=== PATIENT | female | born 1950 | race Caucasian/White ===

== ENCOUNTER → 2023-08-16 14:39 | Outpatient (REF) | payer MEDICARE, OTHER, SELFPAY ==
[2023-08-16 15:17] LABS: % Immature Granulocytes 0.2 % (0-0.5); % Lymphocytes 35.9 % (20.5-51.1); % Monocytes 11.3 % (1.7-9.3); % Neutrophils 45.6 % (42.2-75.2); Absolute Basophils 0.1 10^3/uL (0-0.2); Absolute Eosinophils 0.3 10^3/uL (0-0.7); Absolute Lymphocytes 1.9 10^3/uL (1.2-3.4); Absolute Monocytes 0.6 10^3/uL (0.1-0.6); Absolute Neutrophils 2.4 10^3/uL (1.4-6.5); Hematocrit 37.6 % (37.0-47.0); Hemoglobin 12.6 g/dL (12.0-16.0); Mean Corp Hgb Conc. 33.5 g/dL (33.0-37.0); Mean Corpuscular Hgb 28.4 pg (27.0-31.0); Mean Corpuscular Volume 84.7 fL (81.0-99.0); Mean Platelet Volume 10.3 fL (7.4-10.4); Nucleated Red Blood Cells % 0 %; Platelet Count 275 10^3/uL (130-400); Red Blood Cell Count 4.44 10^6/uL (4.20-5.40); Red Cell Dist. Width 13.3 % (11.5-14.5); White Blood Cell Count 5.2 10^3/uL (4.8-10.8)
[2023-08-16 15:29] LABS: ALT (SGPT) 26 U/L (0-35); AST (SGOT) 31 U/L (14-36); Albumin 4.8 g/dl (3.5-5.0); Alkaline Phosphatase 92 U/L (38-126); Blood Urea Nitrogen 25 mg/dl (7-17); Calcium 10.2 mg/dl (8.4-10.2); Carbon Dioxide 29 mmol/L (22-30); Chloride 99 mmol/L (98-107); Glucose 94 mg/dl (70-99); Potassium 3.8 mmol/L (3.5-5.1); Sodium 138 mmol/L (135-145); Total Bilirubin 0.6 mg/dl (0.2-1.3); Total Protein 7.5 g/dl (6.3-8.2); eGFR > 60.00
== END ==
LOC: REG 14:39
PROVIDERS: ATTENDING PHYSICIAN Nurse Practitioner Family
DX: R10.9 Unspecified abdominal pain (principal); R10.32 Left lower quadrant pain
CPT/HCPCS: 36415; 80053; 85025

== ENCOUNTER → 2023-08-17 14:27 | Outpatient (REF) | payer MEDICARE, OTHER, SELFPAY ==
--- NOTE | 2023-08-27 10:46 | OID.L.PAT ---
Pulmonary Nodule Pat Letter
- -
08/27/23
SEBASTIAN MORE
[address] [place] [address]
[place], [place]
Dear SEBASTIAN,
A pulmonary nodule was seen on an imaging study done by [facility] Radiology. This was reviewed by the [facility] Pulmonary Nodule Advisory Board and the following recommendation was made:
Recommendation: Follow up CT Chest in 6 months
If you have any questions, please do not hesitate to contact your primary care physician. If you are in need of a Physician, you can go to [email or web address] and click on 'Find a Provider'. Type 'Family Medicine' in the search.
Oncology Nurse Navigator
[facility]
[phone]
--- NOTE | 2023-08-27 10:46 | OID.L.REC ---
Pulmonary Nodule Follow Up
- Recommendation
08/27/23
Pulmonary Nodule Review Recommendations
Your patient, SEBASTIAN MORE, had a pulmonary nodule seen on an imaging study done on 08/17/23 in the [facility] Radiology Department.
This was reviewed by the [facility] Pulmonary Nodule Advisory Board and the following recommendation was made:
Recommendation: Follow up CT Chest in 6 months
If you have any questions please do not hesitate to contact us.
Sincerely,
Oncology Nurse Navigator
[facility]
[phone]
== END ==
LOC: HWRAD 14:27
PROVIDERS: ATTENDING PHYSICIAN Nurse Practitioner Family; FAMILY PHYSICIAN Internal Medicine
DX: R10.9 Unspecified abdominal pain (principal); R10.32 Left lower quadrant pain
CPT/HCPCS: 74178; Q9967

== ENCOUNTER → 2023-10-15 12:26 | Outpatient (REF) | payer MEDICARE, OTHER, SELFPAY | LOC: HWRAD 12:26 | PROVIDERS: ATTENDING PHYSICIAN Internal Medicine | DX: M81.0 Age-related osteoporosis without current pathological fracture (principal) | CPT/HCPCS: 77080 ==

== ENCOUNTER → 2024-02-28 07:30 | Outpatient (REF) | payer MEDICARE, OTHER, SELFPAY | LOC: RAD 07:30 | PROVIDERS: ATTENDING PHYSICIAN Family Medicine | DX: R91.1 Solitary pulmonary nodule (principal); M25.552 Pain in left hip; M25.562 Pain in left knee | CPT/HCPCS: 71250; 73502; 73564 ==

== ENCOUNTER 2024-09-03 19:58 | Emergency (ER) | payer MEDICARE, OTHER, SELFPAY ==
[2024-09-03 19:58] VITALS: BMI 27.3
[2024-09-03 20:04] VITALS: BP 203/115
[2024-09-03 20:23] LABS: % Basophils 0.9 % (0-2); % Eosinophils 4.5 % (0-6); % Immature Granulocytes 0.2 % (0-0.5); % Lymphocytes 32.6 % (20.5-51.1); % Monocytes 10.8 % (1.7-9.3); Absolute Basophils 0.1 10^3/uL (0-0.2); Absolute Eosinophils 0.3 10^3/uL (0-0.7); Absolute Lymphocytes 2.1 10^3/uL (1.2-3.4); Absolute Monocytes 0.7 10^3/uL (0.1-0.6); Absolute Neutrophils 3.3 10^3/uL (1.4-6.5); Hematocrit 37.9 % (37.0-47.0); Hemoglobin 12.8 g/dL (12.0-16.0); Mean Corp Hgb Conc. 33.8 g/dL (33.0-37.0); Mean Corpuscular Volume 85.7 fL (81.0-99.0); Mean Platelet Volume 9.6 fL (7.4-10.4); Nucleated Red Blood Cells % 0 %; Platelet Count 284 10^3/uL (130-400); Red Blood Cell Count 4.42 10^6/uL (4.20-5.40); Red Cell Dist. Width 13.9 % (11.5-14.5); White Blood Cell Count 6.4 10^3/uL (4.8-10.8)
[2024-09-03 20:37] LABS: ALT (SGPT) 25 U/L (0-35); AST (SGOT) 32 U/L (14-36); Albumin 4.7 g/dl (3.5-5.0); Alkaline Phosphatase 88 U/L (38-126); Blood Urea Nitrogen 26 mg/dl (7-17); Calcium 10.1 mg/dl (8.4-10.2); Carbon Dioxide 29 mmol/L (22-30); Chloride 105 mmol/L (98-107); Glucose 111 mg/dl (70-99); Magnesium 2.1 mg/dl (1.6-2.3); Potassium 4.3 mmol/L (3.5-5.1); Sodium 141 mmol/L (135-145); Total Bilirubin 0.5 mg/dl (0.2-1.3); Total Protein 7.6 g/dl (6.3-8.2); eGFR > 60.00
[2024-09-03 20:43] VITALS: BP 178/91
--- NOTE | 2024-09-03 20:44 | ED.GENMED ---
History of Present Illness
General
Chief Complaint: Blood Pressure Problem
Source: patient
Time Seen by Provider: 09/03/24 20:27
History of Present Illness
History of Present Illness:
74-year-old female presents to the emergency room complaining of having episode of chest pain at about 5:30 PM. She describes it as a severe tightness or pressure in her chest which lasted a couple minutes. She began checking her blood pressure
because of this chest discomfort. Her blood pressure was elevated and seem to become more elevated to the course of her measurements. This prompted her to come to the emergency room for evaluation. Patient denies any history of hypertension. She
does not take any blood pressure medications. She does see a jewel inspector, Dr. Michele, because she had atherosclerotic changes noted on a chest CT. She does have elevated lipids for which she was prescribed statins but has been intolerant.
Patient denies having any chest discomfort with exertion over the past several weeks. Her blood pressure was normal when she last saw Dr. Michele in July.
Phy Exam
Physical Exam
Physical Exam:
General: Awake, Alert, Oriented X3. No acute distress.
Vitals: unremarkable
Head: Atraumatic
Eyes: Pupils equal, EOMI
Throat: Airway intact, no exudates
Neck: Trachea midline
Lungs: Clear and equal b/l
Heart: Regular rate, no murmurs
Abd: Soft, Nontender, No pulsatile mass
Neuro: Cranial nerves intact, muscle strength equal bilaterally, cerebellar exam normal
Skin: Warm, dry, no rash
Extremities: pulses equal b/l, no edema
Course
Orders/Labs/Results
Orders:
Orders
09/03/24 19:58
Electrocardiogram (*1) Urgent
Reason for Study: Chest Pain
EKG- Treatment ONCE
09/03/24 20:14
Complete Blood Count/With Diff Urgent
Comprehensive Metabolic Panel Urgent
Free T4 Urgent
Magnesium Urgent
TSH Reflex To Free T4 Urgent
Troponin I Urgent
09/03/24 20:38
CT Chest Angio W/wo Iv Contras Urgent
Comment:
Reason For Exam: sudden onset hypertension, chest pain
09/03/24 21:34
Troponin I Urgent
Urinalysis Reflex To Culture Urgent
Date Specimen was Collected: 09/03/24
Time Specimen was Collected: 21:33
Urine Microscopic Reflex Cult Urgent
Abnormal Lab Results
09/03/24 09/03/24
20:14 21:34
Absolute Monos (auto) 0.7 H 10^3/uL
(0.1-0.6)
Monocytes % 10.8 H %
(1.7-9.3)
BUN 26 H mg/dl
(7-17)
Glucose 111 H mg/dl
(70-99)
TSH (Reflex) 5.00 H uIU/ml
(0.47-4.68)
Ur Occult Blood Reflex 1+ A
(Negative)
Urine RBC 3-6 A /HPF
(0-2)
09/03/24 20:14
09/03/24 20:14
Vital Signs
Initial and Last Documented VS:
Initial Vital Signs
Temp Pulse Resp BP Pulse Ox
98.2 F 79 20 203/115 99
09/03/24 20:04 09/03/24 20:04 09/03/24 20:04 09/03/24 20:04 09/03/24 20:04
Last Documented Vital Signs
Temp Pulse Resp BP Pulse Ox
98.2 F 74 19 153/69 100
09/03/24 20:04 09/03/24 22:00 09/03/24 22:00 09/03/24 21:30 09/03/24 22:00
MDM/Problems Addressed
Differential Diagnosis Includes:
Aortic dissection, angina, NSTEMI, musculoskeletal chest pain, labile blood pressure
MDM/Problems Addressed:
Patient presents to the emergency room after having an episode of chest pain and elevated blood pressure. Though her blood pressure was quite high on arrival in triage it has normalized without intervention. Most recent blood pressure is 138/81.
Given chest pain and this suddenly elevated blood pressure a CT of the chest was performed to exclude dissection. The chest CT is read by radiology as unremarkable. Troponin is normal x 2. Patient is known to Dr. Michele. We will give her CBC
chest pain discharge instructions to facilitate outpatient follow-up. I do not believe we need to initiate antihypertensives at this point as her blood pressure has normalized without intervention. We will defer this to cardiology and/or primary
care.
*Radiology
Radiology exam reviewed: radiology read reviewed
*EKG
Interpreted by ED Provider?: Yes
Interpretation: normal
Comparison EKG: no changes (compared to ekg from cardiology office 07/16/24)
Heart Rate: 82
Rate: normal
Rhythm: sinus
[place]: normal axis
Interval: normal interval
QRS Pattern: normal QRS
Ischemia: no ischemia
*[facility] [place] Interpretation
Rate: normal
Interpretation: normal
Heart Rate: 82
Rhythm: sinus
*Critical Care Note
Total Time (30-74mins, 75-104mins- exclusive of procedures): Not Applicable
Data Reviewed
Review of Other/Old Records Reveals: Records (Dr. Michele office notes) and Testing (EKG from Dr. Michele's office)
Patient Management
Social determinants of health affecting care: Strong social support
ED Attending Note
-
Portions of this chart may have been created with voice recognition software.� Occasional wrong word or��sound alike� substitutions may have occurred due to the inherent limitations of voice recognition software.
Discharge Plan
Departure
Patient Disposition: Home (Routine Discharge)
Date of Disposition: 09/03/24
Time of Disposition: 22:27
Patient with high blood pressure during this ER visit?: Yes
Condition: Good
Discharge Problem:
Chest pain, Elevated blood pressure reading
Instructions: Chest Pain CBC Follow Up, BLOOD PRESSURE
Referrals:
Latasha Marrero MD [Family Provider] -
Interventions
Interventions:
*General Assessment Last Done: 09/03/24 20:04
ED- Cardiac Assessment Last Done: 09/03/24 21:11
ED- Neurological Assessment Last Done: 09/03/24 21:11
ED- Pulmonary Assessment Last Done: 09/03/24 21:11
Discharge Date and Time
Print Language: THAI
[2024-09-03 20:50] LABS: Troponin I < 0.012 ng/ml
[2024-09-03 21:05] VITALS: BP 145/73
[2024-09-03 21:27] VITALS: BP 155/74
[2024-09-03 21:30] VITALS: BP 153/69
[2024-09-03 21:37] LABS: Free T4 1.21 ng/dl (0.78-2.19)
[2024-09-03 21:46] LABS: Urine Albumin Negative (Neg - Trace); Urine Bilirubin Negative (Negative); Urine Character Clear (Clear); Urine Color Yellow; Urine Glucose Negative (Negative); Urine Ketone Negative (Negative); Urine Leukocyte Negative (Negative); Urine Nitrite Negative (Negative); Urine Occult Blood 1+ (Negative); Urine Urobilinogen Negative (Neg - 1+)
[2024-09-03 22:00] VITALS: BP 138/81
[2024-09-03 22:09] LABS: Urine White Cell 0-2 /HPF (0-5)
[2024-09-03 22:19] LABS: Troponin I 0.014 ng/ml
== END 2024-09-03 22:30 | disposition home or self-care (01) ==
LOC: EMR 19:58
PROVIDERS: Student in an Organized Health Care Education/Training Program; EMERGENCY PHYSICIAN Emergency Medicine; FAMILY PHYSICIAN Family Medicine
DX: R07.89 Other chest pain (principal); R03.0 Elevated blood-pressure reading, without diagnosis of hypertension
CPT/HCPCS: 99284; 71275; 80053; 81003; 81015; 83735; 84439; 84443; 84484; 85025; 93005; Q9967

== ENCOUNTER → 2025-03-20 08:58 | Outpatient (REF) | payer MEDICARE, OTHER, SELFPAY | LOC: RAD 08:58 | PROVIDERS: ATTENDING PHYSICIAN Family Medicine | DX: R10.30 Lower abdominal pain, unspecified (principal) | CPT/HCPCS: 74177; Q9967 ==

== ENCOUNTER 2025-06-07 08:55 | Emergency (ER) | payer MEDICARE, OTHER, SELFPAY ==
[2025-06-07 09:00] VITALS: BP 162/91
[2025-06-07] MEDS: TORADOL 15 MG IM (10:15)
[2025-06-07] MEDS: FLEXERIL 5 MG PO ×2 (11:23→12:35)
--- NOTE | 2025-06-07 11:31 | ED.GENMED ---
History of Present Illness
General
Chief Complaint: Extremity Pain (non-traumatic)
Time Seen by Provider: 06/07/25 09:41
History of Present Illness
History of Present Illness:
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 Reports
that she has been caring for her dog after surgery and having to pick them up frequently which has been exacerbating this back pain. Pain began yesterday and has worsened throughout the last 24 hours. She is able to ambulate without difficulty but
does report pain with ambulation. She was concern for a blood clot in her left leg which is what caused her to present today.
Phy Exam
General Physical Exam
General Presentation: well appearing and no apparent distress
General Skin: warm and dry
General Habitus: normal
General Mental: alert
General Hydration: appears well hydrated
ENT Exam
ENT Exam: EOMI, pharynx normal, neck supple and normocephalic
Eye Exam
Eye Exam: PERRL, cornea clear and conjunctiva normal
Cardiovascular Exam
Cardiovascular Exam: regular rate/rhythm, no edema, no murmur and normal peripheral pulses
Pulmonary Exam
Pulmonary Exam: lungs clear, no respiratory distress, no rales, no crackles, no rhonchi, no stridor, no wheezing and no cough
Gastrointestinal Exam
Gastrointestinal Exam: normal bowel sounds, non tender, soft, no organomegaly, no pulsatile mass and non distended
Neurological Exam
Neurological Exam: alert, oriented x3, no motor deficits and speech normal
Musculoskeletal Exam
Musculoskeletal Exam: full ROM, no edema and other (Left paraspinal tenderness, left lateral calf pain)
Skin Exam
Skin Exam: normal color, warm/dry, no rash and no petechia
Psychiatric Exam
Psychiatric Exam: normal mood/affect
Course
Orders/Labs/Results
Orders:
Orders
06/07/25 10:05
Ketorolac [Toradol] 15 mg IM NOW STA
US Legs, Left [US Periph Venous LOWER Ext LT] Urgent
Comment:
Reason For Exam: pain in calf
06/07/25 11:12
Cyclobenzaprine HCl [Flexeril] 5 mg PO NOW STA
06/07/25 12:24
Cyclobenzaprine HCl [Flexeril] 5 mg PO NOW STA
Vital Signs
Initial and Last Documented VS:
Initial Vital Signs
Temp Pulse Resp BP Pulse Ox
36.6 C 75 20 162/91 100
06/07/25 09:00 06/07/25 09:00 06/07/25 09:00 06/07/25 09:00 06/07/25 09:00
Last Documented Vital Signs
Temp Pulse Resp BP Pulse Ox
36.6 C 75 20 162/91 100
06/07/25 09:00 06/07/25 09:00 06/07/25 09:00 06/07/25 09:00 06/07/25 11:43
MDM/Problems Addressed
Differential Diagnosis Includes:
Exam not very concerning for DVT. No erythema or unilateral leg swelling. Patient is very concerned about a possible DVT so an ultrasound was obtained which shows no DVT. She was given a dose of Toradol with minimal improvement in her pain. Also
given a dose of Flexeril which helped somewhat. Believe that both left paraspinal pain and left calf pain is associated with muscular strains from repetitive movements of picking up her dog and caring for him. Discussed the need to lift using legs
from a squatting position and not just bending over. Prescription for Flexeril sent to her pharmacy. Return precautions discussed with patient and her son at the bedside.
*Pulse Oximetry
SaO2: 100
Oxygen Mode of Delivery: Room air
Patient hypoxic: no
*Critical Care Note
Total Time (30-74mins, 75-104mins- exclusive of procedures): Not Applicable
ED Attending Note
-
Portions of this chart may have been created with voice recognition software.� Occasional wrong word or��sound alike� substitutions may have occurred due to the inherent limitations of voice recognition software.
Discharge Plan
Departure
Patient Disposition: Home (Routine Discharge)
Date of Disposition: 06/07/25
Time of Disposition: 12:20
Patient with high blood pressure during this ER visit?: No
Discharge Problem:
Repetitive strain injury of lower back, Pain of left calf
Instructions: Low back pain - ED (DC)
Prescriptions:
New
cyclobenzaprine 5 mg tablet
5 mg PO TID PRN (Reason: muscle spasm) Qty: 14 0RF
Referrals:
Latasha Marrero MD [Family Provider, Family Practice]
Activity Restrictions/Additional Instructions:
It is important to rest as able and use proper lifting techniques when picking up your dog. Your pain is likely related to a low back strain. You can continue to use Tylenol and Motrin for pain. In addition a prescription for muscle relaxer has
been sent to your pharmacy. Do not drive if you take this medication. Follow-up with your primary care doctor if your symptoms do not improve within 7 to 10 days. Return to the ER if you develop any numbness or tingling in your extremities,
difficulty with your bladder or bowels or any other concerning symptoms.
Interventions
Interventions:
*ED COVID-19 Vaccine History Last Done: 06/07/25 09:00
*ED Influenza Vaccine History Last Done: 06/07/25 09:00
*Risk Screen - Suicide (C-SSRS) Last Done: 06/07/25 09:00
*Nursing Disposition Last Done: 06/07/25 12:44
ED-Musculoskeletal Assessment Last Done: 06/07/25 09:30
ED-Skin Assessment Last Done: 06/07/25 09:30
Discharge Date and Time
Discharge Date/Time: 06/07/25 12:45
Print Language: ITALIAN
== END 2025-06-07 12:45 | disposition home or self-care (01) ==
LOC: EMR 08:55
PROVIDERS: EMERGENCY PHYSICIAN Emergency Medicine; FAMILY PHYSICIAN Family Medicine
DX: S39.012A Strain of muscle, fascia and tendon of lower back, initial encounter (principal); X50.3XXA Overexertion from repetitive movements, initial encounter; M79.662 Pain in left lower leg; E78.5 Hyperlipidemia, unspecified
CPT/HCPCS: 99284; 96372; 93971